=== PATIENT | male | born 1955 | race Two or more races ===

== ENCOUNTER → 2016-04-10 10:31 | Outpatient (CLI) | payer MEDICAID | END | disposition home or self-care (01) | LOC: D.CT 10:31 | DX: S00.83XA Contusion of other part of head, initial encounter (principal) ==

== ENCOUNTER 2018-09-04 03:07 | Emergency (ER) | payer MEDICAID ==
[~2018-09-04] VITALS: Ht 167.6 cm; Wt 74.5 kg
[2018-09-04 03:15] VITALS: Ht 167.6 cm; Wt 74.5 kg
[2018-09-04] MEDS ORDERED: LISINOPRIL10 MG PO (03:16)
[2018-09-04] MEDS ORDERED: [UNRECOGNIZED DRUG - REMARK] (03:17)
[2018-09-04] MEDS ORDERED: MECLIZINE HCL25 MG PO (03:47)
[2018-09-04] MEDS ORDERED: FLUTICASONE PRO16 GM NASAL (03:47)
[2018-09-04 03:53] VITALS: BP 147/79
== END 2018-09-04 03:54 | disposition home or self-care (01) ==
LOC: D.ER 03:07
DX: H65.193 Other acute nonsuppurative otitis media, bilateral (principal); R42 Dizziness and giddiness

== ENCOUNTER 2018-12-22 12:34 | Emergency (ER) | payer MEDICAID ==
[~2018-12-22] VITALS: Ht 167.6 cm; Wt 74.5 kg
[~2018-12-22 12:34] MED LIST: FLUTICASONE PRO16 GM NASAL; LISINOPRIL10 MG PO; MECLIZINE HCL25 MG PO; [UNRECOGNIZED DRUG - REMARK]
[2018-12-22 12:36] VITALS: Ht 167.6 cm; Wt 74.5 kg
[2018-12-22 13:15] LABS: BASOPHILS 0.4 % (0-2); EOSINOPHILS 1.5 % (0-7); HEMATOCRIT 40.8 % (42.0-54.0); HEMOGLOBIN 13.7 g/dL (13.5-17.5); IMMATURE GRANULOCYTES 1.3 % (0-5); LYMPHOCYTES 27.6 % (15-50); MCH 29.1 pg (26.0-34.0); MCHC 33.6 g/dL (31.0-37.0); MCV 86.8 fL (80.0-100.0); MEAN PLATELET VOLUME 8.9 fL (7.4-10.4); MONOCYTES 7.9 % (2-11); NEUTROPHILS 61.3 % (40-80); PLATELET COUNT 272 10x3/uL (130-400); RDW 13.2 % (11.5-14.5); WBC 5.3 10x3/uL (4.8-10.8)
[2018-12-22 13:20] LABS: APPEARANCE CLEAR (CLEAR); BILIRUBIN NEGATIVE (NEGATIVE); COLOR YELLOW (YELLOW); EPITHELIAL CELLS 0-5 /hpf (0-5); GLUCOSE NEGATIVE (NEGATIVE); KETONE NEGATIVE (NEGATIVE); NITRITE NEGATIVE (NEGATIVE); PROTEIN TRACE mg/dL (NEGATIVE); RED CELLS - URINE 0-5 /hpf (0-5); UROBILINOGEN NORMAL (NORMAL); WHITE CELLS - URINE 0-5 /hpf (NEGATIVE)
[2018-12-22 13:24] LABS: APTT 28.3 SECONDS (22.8-39.4); PROTIME 12.7 SECONDS (11.6-15.0)
[2018-12-22 13:30] LABS: ALBUMIN 3.5 g/dL (3.4-5.0); ANION GAP 12.5 mmol/L (8-16); BILIRUBIN - TOTAL 0.36 mg/dL (0.2-1.3); CALCIUM 8.5 mg/dL (8.5-10.1); CARBON DIOXIDE 26.9 mmol/L (21.0-32.0); CREATININE - SERUM 1.1 mg/dL (0.6-1.3); POTASSIUM - SERUM 3.4 mmol/L (3.5-5.1); PROTEIN - SERUM 6.7 g/dL (6.4-8.2)
[2018-12-22] MEDS ORDERED: HYDROCODON-ACE1 EA10 PO (14:08)
[2018-12-22 14:18] VITALS: BP 158/88
== END 2018-12-22 14:30 | disposition home or self-care (01) ==
LOC: D.ER 12:34
PROVIDERS: Family Medicine
DX: S32.019A Unspecified fracture of first lumbar vertebra, initial encounter for closed fracture (principal); V47.0XXA Car driver injured in collision with fixed or stationary object in nontraffic accident, initial encounter